=== PATIENT | female | born 1995 | race Caucasian/White ===

== ENCOUNTER 2016-12-25 16:37 | Emergency (ER) | payer OTHER ==
[2016-12-25 17:32] LABS: Urine Bilirubin Negative (Negative); Urine Glucose 3+(>=500 mg/dL) (Negative); Urine Nitrite Negative (Negative)
[2016-12-25 17:36] LABS: UR Preg Internal Control QC Line Present
--- NOTE | 2016-12-25 18:48 | RAD ---
indication: Head and back pain after falling off of bed loss COMPARISON: None A CT scan of the brain and c-spine was performed without intravenous contrast enhancement. Contiguous axial sections were obtained from the lung apices through the vertex. BRAIN: The ventricles, cisterns and sulci are within normal limits. No significant focal abnormality or mass effect is seen. The troy-white differentiation is adequately maintained. There is no evidence for intracranial hemorrhage. No significant bony abnormality is present. The mastoid air cells are appropriately aerated. The visualized paranasal sinuses are clear. C-SPINE: On the sagittal view images there is straightening of the normal cervical lordosis. Otherwise the facet joints and vertebral bodies are anatomically aligned. The dens is intact and the atlantoaxial interval is not widened. The intervertebral body heights are maintained. There is no hyperdense material in the cervical canal to indicate hemorrhage. The visualized musculature and soft tissues are normal. There is no gross lymphadenopathy visualized. The visualized portion of the lung apices are clear. IMPRESSION: 1. No calvarial fracture or acute intracranial hemorrhage. 2. Nonspecific straightening of the normal cervical lordosis without acute fracture or dislocation identified.
[2016-12-25] MEDS ORDERED: Ibuprofen TAB* 600 MG PO ONE (18:59)
--- NOTE | 2016-12-25 19:08 | ED ---
Jesi Paulson Michael, scribed for Raymond Modi MD on 12/25/16 at 1710 . Adult Trauma - HPI Summary HPI Summary: 21 y/o female comes to the ED presenting with a MON after a mechanical fall of 3 feet off a lofted bed last night. The pt reports to hitting her posterior head, and she states that the pain has worsened throughout the day. The pt currently rates the pain a 7 out of 10 on a pain severity scale. She also c/o photophobia , nause, and neck stiffness. The pt denies currently nausea and LOC. The PMHx and FHx are significant for DM-II. Her LNMP was one month ago. - History of Current Complaint Chief Complaint: EDHeadInjury Stated Complaint: HEADACHE Time Seen by Provider: 12/25/16 17:00 Hx Obtained From: Patient, Medical Records Mechanism of Injury: Fall - from 3ft Ambulatory at the Scene: No Loss of Consciousness: no loss of consciousness Onset/Duration: Started Days Ago Onset of Pain: Immediate Onset Severity: Mild Current Severity: Moderate Pain Intensity: 6 Pain Scale Used: 0-10 Numeric Location: Head, Neck Alleviating Factor(s): Nothing Associated Signs & Symptoms: Positive: Other: - MON. neck stiffness. photophobia. nausea.. Negative: Loss of Consciousness - Allergy/Home Medications Allergies/Adverse Reactions: Allergies Allergy/AdvReac Type Severity Reaction Status Date / Time No Known Allergies Allergy Verified 12/25/16 16:55 PMH/Surg Hx/FS Hx/Imm Hx Endocrine/Hematology History: Reports: Hx Diabetes - type II Infectious Disease History: No Infectious Disease History: Denies: Traveled Outside the [place] in Last 30 Days - Family History Known Family History: Positive: Diabetes, Other - breast CA - Social History Occupation: Student Lives: With Family Alcohol Use: Occasionally Hx Substance Use: No Hx Tobacco Use: No Review of Systems Negative: Fever Positive: Photophobia Positive: Nausea Positive: Other - neck stiffness Positive: Headache. Negative: Syncope All Other Systems Reviewed And Are Negative: Yes Physical Exam - Summary Physical Exam Summary: VITAL SIGNS: Reviewed. GENERAL: Patient is a well developed and nourished female who is lying comfortable in the stretcher. Patient is not in any acute respiratory distress. HEAD AND FACE: No signs of trauma. No ecchymosis, hematomas or skull depressions. No sinus tenderness. EYES: PERRLA, EOMI x 2, No injected conjunctiva, no nystagmus. No photophobia. EARS: Hearing grossly intact. Ear canals and tympanic membranes are within normal limits. MOUTH: Oropharynx within normal limits. NECK: Supple, trachea is midline, no adenopathy, no JVD, no carotid bruit, no c- spine tenderness, neck with full ROM. No meningeal signs, no Kernig's or brudzinskis signs. CHEST: Symmetric, no tenderness at palpation LUNGS: Clear to auscultation bilaterally. No wheezing or crackles. CVS: Regular rate and rhythm, S1 and S2 present, no murmurs or gallops appreciated. ABDOMEN: Soft, non-tender. No signs of distention. No rebound no guarding, and no masses palpated. Bowel sounds are normal. EXTREMITIES: FROM in all major joints, no edema, no cyanosis or clubbing. NEURO: Alert and oriented x 3. No acute neurological deficits. Speech is normal and follows commands. SKIN: Dry and warm Triage Information Reviewed: Yes Vital Signs On Initial Exam: Initial Vitals Temp Pulse Resp BP Pulse Ox 98.4 F 88 16 129/62 100 12/25/16 16:51 12/25/16 16:51 12/25/16 16:51 12/25/16 16:51 12/25/16 16:51 Vital Signs Reviewed: Yes Diagnostics - Vital Signs Vital Signs Temp Pulse Resp BP Pulse Ox 12/25/16 16:51 98.4 F 88 16 129/62 100 - Laboratory Lab Statement: Any lab studies that have been ordered have been reviewed, and results considered in the medical decision making process. - CT Brain CT CT Interpretation: No Acute Changes - Impression: 1. No calvarial fracture or acute intracranial hemorrhage. 2.Nonspecific straightening of the normal cervical lordosis without acute fx or dislocation identified. CT Interpretation Completed By: Radiologist C-SPINE CT CT Interpretation: No Acute Changes - Impression: 1. No calvarial fracture or acute intracranial hemorrhage. 2.Nonspecific straightening of the normal cervical lordosis without acute fx or dislocation identified. CT Interpretation Completed By: Radiologist Adult Trauma Course/Dx - Course Assessment/Plan: 21 y/o female comes to the ED presenting with a MON after a mechanical fall of 3 feet off a lofted bed last night. The pt reports to hitting her posterior head, and she states that the pain has worsened throughout the day. The pt currently rates the pain a 7 out of 10 on a pain severity scale. She also c/o photophobia, nausea, and neck stiffness. The pt denies currently nausea and LOC. The PMHx and FHx are significant for DM-II. Her LNMP was one month ago. Head CT and C spine CT IMPRESSION: 1. No calvarial fracture or acute intracranial hemorrhage. 2. Nonspecific straightening of the normal cervical lordosis without acute fracture or dislocation identified. Patient was given Ibuprofen for MON and discharged home w/ f/u of PMD. She was given head contusion precautions. I discussed all the findings and test results with the patient. Patient was instructed to return to the emergency room immediately if any of the symptoms return or worsens. If she develops increase in pain, nausea and vomiting or lethargy she should return to the ED. Plan of care was discussed with the patient and understands and agrees. All questions were answered at patient satisfaction. There were no further complaints or concerns. P/E: Lungs: CTA B/L. Good air exchange. No wheezing or crackles heard. CVS: S1 and S2 present. No murmurs appreciated. Patient is alert and oriented x 3. Patient is hemodynamically stable. Patient will be discharged home with follow up PMD in the next 2-3 days. Patient was given Ibuprofen. - Diagnoses Differential Diagnosis/HQI/PQRI: Positive: Contusion(s), Hematoma(s) Provider Diagnoses: Head contusion Discharge - Discharge Plan Condition: Stable Disposition: HOME Patient Education Materials: Fall Prevention (ED), Contusion in Adults (ED), Scalp Contusion in Adults (ED) Referrals: No Primary Care Phys,NOPCP [Medical Doctor] - [facility] REFERRAL [Outside] Additional Instructions: Follow up with your primary care physician. The documentation as recorded by the Jesi cortez Michael accurately reflects the service I personally performed and the decisions made by me, Raymond Modi MD.
[2016-12-25 19:48] VITALS: BP 110/45
== END 2016-12-25 19:46 | disposition home or self-care (01) ==
LOC: ED 16:37
DX: S00.93XA Contusion of unspecified part of head, initial encounter (principal); R51 Headache; H53.149 Visual discomfort, unspecified; R11.0 Nausea; W06.XXXA Fall from bed, initial encounter; Y93.9 Activity, unspecified; Y92.9 Unspecified place or not applicable
CPT/HCPCS: 70450; 72125; 81003; 81025; 99282; A9270-GY